=== PATIENT | female | born 1945 | race Caucasian/White ===

== ENCOUNTER 2020-04-09 18:14 | Inpatient (IN) ==
[2020-04-09 19:24] LABS: Basophils % 0.1 %; Eosinophils % 0.1 %; Hematocrit 28.3 % (35.3-44.9); Hemoglobin 9.5 g/dL (11.5-15.4); Immature Granulocytes % 0.4 % (0-4); Lymphocytes # 0.9 K/mcL (0.6-4.6); Lymphocytes % 6.7 %; Mean Corpuscular HGB Conc 33.6 g/dL (31.6-35.5); Mean Corpuscular Hemoglobin 32.2 pg (28.0-33.3); Mean Corpuscular Volume 95.9 fL (83.0-100.0); Mean Platelet Volume 11.3 fL (9.4-12.4); Monocytes # 1.4 K/mcL (0.0-1.3); Monocytes % 10.8 %; Neutrophils # 10.6 K/mcL (1.6-8.9); Platelet Count 116 K/mcL (140-400); Red Blood Count 2.95 M/mcL (3.82-4.97); Red Cell Distribution Width 14.7 % (11.5-14.5); Segmented Neutrophils % 81.9 %; White Blood Count 12.9 K/mcL (4.3-11.1)
[2020-04-09] MEDS: 0.9 % Sodium Chloride 1,000 ML IVC SCH (19:40)
[2020-04-09 19:51] LABS: Alanine Aminotransferase 17 Units/L (7-52); Albumin 3.3 g/dL (3.5-5.7); Albumin/Globulin Ratio 1.1 (1.1-2.2); Alkaline Phosphatase 61 Units/L (34-104); Aspartate Amino Transferase 52 Units/L (13-39); BUN/Creatinine Ratio 32 (6-26); Bilirubin,Direct 0.1 mg/dL (0.0-0.2); Bilirubin,Indirect 0.4 mg/dL (0.0-1.0); Bilirubin,Total 0.5 mg/dL (0.3-1.0); Blood Urea Nitrogen 30 mg/dL (8-23); Calcium 8.9 mg/dL (8.6-10.3); Carbon Dioxide 25 mEq/L (23-29); Chloride 107 mEq/L (98-107); Glucose 131 mg/dL (70-105); Osmolality,Calculated 300 (280-300); Sodium 141 mEq/L (136-145); Total Protein 6.3 g/dL (6.4-8.9); Troponin I 0.06 ng/mL (< 0.04); eGFR For African Americans > 60 (> 60); eGFR For Non-African Americans 58 (> 60)
[2020-04-09 19:57] LABS: Bilirubin,Urine Negative (Negative); Blood,Urine Negative (Negative); Clarity,Urine Cloudy (Clear); Color,Urine Yellow (Yellow); Glucose,Urine (UA) Normal (Normal); Ketones,Urine Negative (Negative); Leukocyte Esterase,Urine Negative (Negative); Nitrite,Urine Negative (Negative); PH,Urine 5.5 pH Units (5.0-8.0); Protein,Urine >=300 mg/dL (Neg-Trace); Urobilinogen,Urine Normal (Normal)
[2020-04-09 19:59] LABS: Activated Partial Thrombo Time 28.8 Seconds (26.0-36.0); INR 1.2; Prothrombin Time 13.1 Seconds (9.4-12.1)
[2020-04-09 20:04] LABS: Amphetamine Screen,Urine Negative ng/mL (Cutoff=1000); Barbiturate Screen,Urine Negative ng/mL (Cutoff=200); Benzodiazepines Screen,Urine Negative ng/mL (Cutoff=200); Cannabinoid Screen,Urine Negative ng/mL (Cutoff = 50); Cocaine Screen,Urine Negative ng/mL (Cutoff= 300); Opiate Screen,Urine Negative ng/mL (Cutoff=300); Phencyclidine Screen,Urine Negative ng/mL (Cutoff=25)
[2020-04-09 20:07] LABS: Amorphous Sediment,Urine Many per hpf (None-Few); Bacteria,Urine Few per hpf (None-Few); Squamous Epithelial Cell,Urine Few per hpf (None-Few); WBC,Urine 0-3 per hpf (0-3)
[2020-04-09 20:18] LABS: Platelet Clumps Few (Not Present); Platelet Estimate Decreased (Normal)
[2020-04-09] MEDS ORDERED: levoFLOXacin 750 MG/150 ML 750 MG/150 ML BAG IVPB SCH (21:00)
[2020-04-10 01:42] LABS: Adenovirus Not Detected (Not Detect); Bordetella Pertussis Not Detected (Not Detect); Chlamydophila pneumoniae Not Detected (Not Detect); Coronavirus 229E Not Detected (Not Detect); Coronavirus HKU1 Not Detected (Not Detect); Coronavirus NL63 Not Detected (Not Detect); Coronavirus OC43 Not Detected (Not Detect); Human Metapneumovirus Not Detected (Not Detect); Human Rhinovirus/Enterovirus Not Detected (Not Detect); Influenza A Subtype 2009 H1 Not Detected (Not Detect); Influenza B Not Detected (Not Detect); Mycoplasma pneumoniae Not Detected (Not Detect); Parainfluenza Virus 1 Not Detected (Not Detect); Parainfluenza Virus 2 Not Detected (Not Detect); Parainfluenza Virus 3 Not Detected (Not Detect); Parainfluenza Virus 4 Not Detected (Not Detect); Respiratory Syncytial Virus Not Detected (Not Detect); SARS-CoV-2 Not Detected (Not Detect)
[2020-04-10] MEDS ORDERED: Ondansetron 4 MG/2 ML VIAL IVP PRN (02:15)
[2020-04-10] MEDS ORDERED: 0.9 % Sodium Chloride 1,000 ML IVC SCH (02:15)
[2020-04-10] MEDS ORDERED: Naloxone 0.4 MG/ML INJ IVP PRN (02:15)
[2020-04-10] MEDS: NIFEdipine XL (24 HR) 30 MG TAB.ER.24 PO SCH (09:16)
[2020-04-10] MEDS: Furosemide 20 MG TABLET PO SCH (09:16)
[2020-04-10] MEDS: rOPINIRole 1 MG TABLET PO SCH (09:17)
[2020-04-10] MEDS: risperiDONE 0.25 MG TABLET PO SCH (09:17)
[2020-04-10] MEDS: allopurinoL 100 MG TABLET PO SCH ×2 (09:18→20:45)
[2020-04-10] MEDS: Magnesium Oxide 400 MG TABLET PO SCH (09:18)
[2020-04-10] MEDS: TRADJENTA 5MG PO SCH (09:18)
[2020-04-10] MEDS: Famotidine 20 MG TABLET PO SCH ×2 (09:18→20:45)
[2020-04-10] MEDS: Aspirin Enteric Coated 81 MG Tablet PO SCH (09:18)
[2020-04-10] MEDS ORDERED: Ipratropium/Albuterol Neb 3 ML IH PRN (11:04)
[2020-04-10] MEDS ORDERED: Dextrose Gel 15 GM/37.5 ML TUBE PO PRN ×2 (11:11)
[2020-04-10] MEDS ORDERED: *HR* Dextrose 50 % in Water (Vial) 50 ML VIAL IVP PRN (11:11)
[2020-04-10] MEDS ORDERED: D5% in Water 1,000 ML IVC PRN (11:11)
[2020-04-10] MEDS: Insulin LISPRO 300 UNITS/3 ML VIAL SQ SCH ×2 (12:40→17:02)
[2020-04-10] MEDS: Budesonide/Formoterol 160/4.5 1 PUFF INH IH SCH ×2 (13:23→21:02)
[2020-04-10 19:40] LABS: Acinetobacter baumannii by PCR Not Detected (Not Detect); Candida albicans by PCR Not Detected (Not Detect); Candida glabrata by PCR Not Detected (Not Detect); Enterobacter cloacae Cmplx PCR Not Detected (Not Detect); Enterococcus by PCR Not Detected (Not Detect); Escherichia coli by PCR DETECTED (Not Detect); Klebsiella oxytoca by PCR Not Detected (Not Detect); Klebsiella pneumoniae by PCR Not Detected (Not Detect); Proteus by PCR Not Detected (Not Detect); Pseudomonas aeruginosa by PCR Not Detected (Not Detect); Serratia marcescens by PCR Not Detected (Not Detect); Staphylococcus aureus by PCR Not Detected (Not Detect); Staphylococcus by PCR Not Detected (Not Detect); Streptococcus agalactiae(B)PCR Not Detected (Not Detect); Streptococcus by PCR Not Detected (Not Detect); Streptococcus pneumoniae PCR Not Detected (Not Detect); Streptococcus pyogenes (A) PCR Not Detected (Not Detect); blaKPC Carbapenem-Resist Gene Not Detected (Not Detect)
[2020-04-10 19:41] LABS: Candida krusei by PCR Not Detected (Not Detect); Candida parapsilosis by PCR Not Detected (Not Detect); Candida tropicalis by PCR Not Detected (Not Detect)
[2020-04-10] MEDS: risperiDONE 1 MG TABLET PO SCH (20:45)
[2020-04-10 21:28] LABS: Estimated Average Glucose 111 mg/dl
[2020-04-11] MEDS: Levothyroxine 25 MCG TABLET PO SCH (04:31)
[2020-04-11 07:30] LABS: Hemoglobin 8.9 g/dL (11.5-15.4); Mean Corpuscular Hemoglobin 31.9 pg (28.0-33.3); Mean Corpuscular Volume 96.8 fL (83.0-100.0); Mean Platelet Volume 11.3 fL (9.4-12.4); Platelet Count 116 K/mcL (140-400); Red Blood Count 2.79 M/mcL (3.82-4.97); Red Cell Distribution Width 14.6 % (11.5-14.5); White Blood Count 9.4 K/mcL (4.3-11.1)
[2020-04-11 07:50] LABS: Calcium 9.3 mg/dL (8.6-10.3); Potassium 4.4 mEq/L (3.5-5.1)
[2020-04-11] MEDS: NIFEdipine XL (24 HR) 30 MG TAB.ER.24 PO SCH (08:13)
[2020-04-11] MEDS: risperiDONE 0.25 MG TABLET PO SCH (08:13)
[2020-04-11] MEDS: rOPINIRole 1 MG TABLET PO SCH (08:13)
[2020-04-11] MEDS: Aspirin Enteric Coated 81 MG Tablet PO SCH (08:13)
[2020-04-11] MEDS: Famotidine 20 MG TABLET PO SCH ×2 (08:13→21:00)
[2020-04-11] MEDS: allopurinoL 100 MG TABLET PO SCH ×2 (08:13→21:00)
[2020-04-11] MEDS: TRADJENTA 5MG PO SCH (08:14)
[2020-04-11] MEDS: Magnesium Oxide 400 MG TABLET PO SCH (08:14)
[2020-04-11] MEDS: Insulin LISPRO 300 UNITS/3 ML VIAL SQ SCH ×3 (08:14→17:31)
[2020-04-11] MEDS: Budesonide/Formoterol 160/4.5 1 PUFF INH IH SCH ×2 (10:26→22:25)
[2020-04-11] MEDS: Furosemide 20 MG TABLET PO SCH ×2 (13:18→13:19)
[2020-04-11] MEDS: Furosemide 20 MG/2 ML VIAL IVP SCH (13:19)
[2020-04-11] MEDS: risperiDONE 1 MG TABLET PO SCH (21:00)
[2020-04-11] MEDS ORDERED: levoFLOXacin 750 MG/150 ML 750 MG/150 ML BAG IVPB SCH (21:00)
[2020-04-12] MEDS: Levothyroxine 25 MCG TABLET PO SCH (06:04)
[2020-04-12] MEDS: 0.9 % Sodium Chloride 1,000 ML IVC SCH (07:58)
[2020-04-12] MEDS: Furosemide 20 MG TABLET PO SCH ×2 (07:59→09:54)
[2020-04-12 08:47] LABS: Hematocrit 27.3 % (35.3-44.9); Hemoglobin 9.1 g/dL (11.5-15.4); Mean Corpuscular HGB Conc 33.3 g/dL (31.6-35.5); Mean Corpuscular Volume 96.1 fL (83.0-100.0); Mean Platelet Volume 10.7 fL (9.4-12.4); Platelet Count 135 K/mcL (140-400); Red Blood Count 2.84 M/mcL (3.82-4.97); Red Cell Distribution Width 14.6 % (11.5-14.5); White Blood Count 8.2 K/mcL (4.3-11.1)
[2020-04-12 09:17] LABS: Potassium 4.4 mEq/L (3.5-5.1); Troponin I 0.09 ng/mL (< 0.04)
[2020-04-12] MEDS: Famotidine 20 MG TABLET PO SCH ×2 (09:53→20:16)
[2020-04-12] MEDS: Magnesium Oxide 400 MG TABLET PO SCH (09:53)
[2020-04-12] MEDS: Sulfamethoxazole/Trimeth DS 1 EACH TABLET PO SCH ×2 (09:54→20:16)
[2020-04-12] MEDS: Aspirin Enteric Coated 81 MG Tablet PO SCH (09:54)
[2020-04-12] MEDS: allopurinoL 100 MG TABLET PO SCH ×2 (09:54→20:16)
[2020-04-12] MEDS: risperiDONE 0.25 MG TABLET PO SCH (09:54)
[2020-04-12] MEDS: Furosemide 20 MG/2 ML VIAL IVP SCH (09:54)
[2020-04-12] MEDS: rOPINIRole 1 MG TABLET PO SCH (09:55)
[2020-04-12] MEDS: TRADJENTA 5MG PO SCH (09:55)
[2020-04-12] MEDS: NIFEdipine XL (24 HR) 30 MG TAB.ER.24 PO SCH (09:55)
[2020-04-12] MEDS: Insulin LISPRO 300 UNITS/3 ML VIAL SQ SCH ×3 (09:55→17:36)
[2020-04-12] MEDS: Budesonide/Formoterol 160/4.5 1 PUFF INH IH SCH ×2 (11:00→23:26)
[2020-04-12] MEDS: risperiDONE 1 MG TABLET PO SCH (20:16)
[2020-04-13] MEDS: Levothyroxine 25 MCG TABLET PO SCH (05:45)
[2020-04-13] MEDS: Insulin LISPRO 300 UNITS/3 ML VIAL SQ SCH ×3 (08:06→16:36)
[2020-04-13] MEDS: Budesonide/Formoterol 160/4.5 1 PUFF INH IH SCH (09:28)
[2020-04-13] MEDS: rOPINIRole 1 MG TABLET PO SCH (10:02)
[2020-04-13] MEDS: NIFEdipine XL (24 HR) 30 MG TAB.ER.24 PO SCH (10:02)
[2020-04-13] MEDS: risperiDONE 0.25 MG TABLET PO SCH (10:02)
[2020-04-13] MEDS: Aspirin Enteric Coated 81 MG Tablet PO SCH (10:02)
[2020-04-13] MEDS: Famotidine 20 MG TABLET PO SCH (10:03)
[2020-04-13] MEDS: Furosemide 20 MG/2 ML VIAL IVP SCH (10:03)
[2020-04-13] MEDS: Sulfamethoxazole/Trimeth DS 1 EACH TABLET PO SCH (10:03)
[2020-04-13] MEDS: Magnesium Oxide 400 MG TABLET PO SCH (10:03)
[2020-04-13] MEDS: allopurinoL 100 MG TABLET PO SCH (10:03)
[2020-04-13] MEDS: TRADJENTA 5MG PO SCH (10:03)
[2020-04-13 14:41] VITALS: BP 137/65
[2020-04-13] MEDS ORDERED: Famotidine 20 MG TABLET PO SCH (21:00)
== END 2020-04-13 18:21 | disposition hospice, home (50) | DRG 193 ==
LOC: INPPIK 18:14 → EMEROOPIK 18:14 → INPPIK 04-10 01:50
PROVIDERS: ADMIT Family Medicine; ATTEND Family Medicine

== ENCOUNTER 2020-04-13 10:46 | Inpatient (IN) ==
[2020-04-13] MEDS ORDERED: Albuterol 2.5 MG/3 ML NEBULIZER IH PRN (16:19)
[2020-04-13] MEDS: Sulfamethoxazole/Trimeth DS 1 EACH TABLET PO SCH (21:47)
[2020-04-13] MEDS: risperiDONE 1 MG TABLET PO SCH (21:47)
[2020-04-13] MEDS: Famotidine 20 MG TABLET PO SCH (21:47)
[2020-04-13] MEDS: allopurinoL 100 MG TABLET PO SCH (21:48)
[2020-04-14] MEDS: Levothyroxine 25 MCG TABLET PO SCH (05:28)
[2020-04-14 08:06] LABS: Basophils % 0.2 %; Eosinophils # 0.2 K/mcL (0.0-0.6); Eosinophils % 2.7 %; Hematocrit 25.5 % (35.3-44.9); Hemoglobin 8.6 g/dL (11.5-15.4); Immature Granulocytes % 0.3 % (0-4); Lymphocytes # 1.7 K/mcL (0.6-4.6); Lymphocytes % 28.8 %; Mean Corpuscular HGB Conc 33.7 g/dL (31.6-35.5); Mean Corpuscular Hemoglobin 32.3 pg (28.0-33.3); Mean Corpuscular Volume 95.9 fL (83.0-100.0); Mean Platelet Volume 10.8 fL (9.4-12.4); Monocytes # 0.6 K/mcL (0.0-1.3); Monocytes % 10.4 %; Neutrophils # 3.4 K/mcL (1.6-8.9); Platelet Count 142 K/mcL (140-400); Red Blood Count 2.66 M/mcL (3.82-4.97); Red Cell Distribution Width 14.6 % (11.5-14.5); Segmented Neutrophils % 57.6 %; White Blood Count 5.9 K/mcL (4.3-11.1)
[2020-04-14] MEDS: Aspirin Enteric Coated 81 MG Tablet PO SCH (08:10)
[2020-04-14] MEDS: NIFEdipine XL (24 HR) 30 MG TAB.ER.24 PO SCH (08:10)
[2020-04-14] MEDS: allopurinoL 100 MG TABLET PO SCH ×2 (08:10→19:49)
[2020-04-14] MEDS: risperiDONE 0.25 MG TABLET PO SCH (08:10)
[2020-04-14] MEDS: rOPINIRole 1 MG TABLET PO SCH (08:10)
[2020-04-14] MEDS: Sulfamethoxazole/Trimeth DS 1 EACH TABLET PO SCH ×2 (08:10→19:49)
[2020-04-14] MEDS: calcium polycarbophiL 625 MG TABLET PO SCH (08:11)
[2020-04-14] MEDS: Famotidine 20 MG TABLET PO SCH ×2 (08:11→16:43)
[2020-04-14] MEDS: Furosemide 20 MG TABLET PO SCH (08:11)
[2020-04-14] MEDS: Cholecalciferol (D-3) 1,000 UNIT (25MCG) TABLET PO SCH (08:11)
[2020-04-14] MEDS: Magnesium L-Lactate [Mag-Tab Sr] 84 MG PO SCH (08:12)
[2020-04-14 08:20] LABS: Calcium 9.4 mg/dL (8.6-10.3); Potassium 4.1 mEq/L (3.5-5.1)
[2020-04-14] MEDS ORDERED: INULIN PO SCH (09:00)
[2020-04-14] MEDS ORDERED: [UNRECOGNIZED DRUG - OTHER] PO SCH (09:00)
[2020-04-14] MEDS ORDERED: CHOLECALCIFEROL PO SCH (09:00)
[2020-04-14] MEDS: Budesonide/Formoterol 160/4.5 1 PUFF INH IH SCH ×2 (09:02→22:34)
[2020-04-14] MEDS: risperiDONE 1 MG TABLET PO SCH (19:49)
[2020-04-15] MEDS: Famotidine 20 MG TABLET PO SCH ×2 (06:46→16:32)
[2020-04-15] MEDS: Levothyroxine 25 MCG TABLET PO SCH (06:46)
[2020-04-15] MEDS: Sulfamethoxazole/Trimeth DS 1 EACH TABLET PO SCH ×2 (08:02→19:35)
[2020-04-15] MEDS: allopurinoL 100 MG TABLET PO SCH ×2 (08:02→19:34)
[2020-04-15] MEDS: rOPINIRole 1 MG TABLET PO SCH (08:02)
[2020-04-15] MEDS: risperiDONE 0.25 MG TABLET PO SCH (08:02)
[2020-04-15] MEDS: NIFEdipine XL (24 HR) 30 MG TAB.ER.24 PO SCH (08:02)
[2020-04-15] MEDS: Cholecalciferol (D-3) 1,000 UNIT (25MCG) TABLET PO SCH (08:02)
[2020-04-15] MEDS: calcium polycarbophiL 625 MG TABLET PO SCH (08:02)
[2020-04-15] MEDS: Aspirin Enteric Coated 81 MG Tablet PO SCH (08:02)
[2020-04-15] MEDS: Furosemide 20 MG TABLET PO SCH (08:03)
[2020-04-15] MEDS: Magnesium L-Lactate [Mag-Tab Sr] 84 MG PO SCH (08:03)
[2020-04-15] MEDS: Budesonide/Formoterol 160/4.5 1 PUFF INH IH SCH ×2 (10:27→23:03)
[2020-04-15] MEDS: Magnesium Oxide 400 MG TABLET PO SCH (11:18)
[2020-04-15] MEDS: risperiDONE 1 MG TABLET PO SCH (19:34)
[2020-04-16] MEDS: Famotidine 20 MG TABLET PO SCH ×2 (06:18→17:42)
[2020-04-16] MEDS: Levothyroxine 25 MCG TABLET PO SCH (06:18)
[2020-04-16] MEDS: risperiDONE 0.25 MG TABLET PO SCH (08:04)
[2020-04-16] MEDS: Aspirin Enteric Coated 81 MG Tablet PO SCH (08:04)
[2020-04-16] MEDS: Furosemide 20 MG TABLET PO SCH (08:04)
[2020-04-16] MEDS: NIFEdipine XL (24 HR) 30 MG TAB.ER.24 PO SCH (08:04)
[2020-04-16] MEDS: Cholecalciferol (D-3) 1,000 UNIT (25MCG) TABLET PO SCH (08:04)
[2020-04-16] MEDS: allopurinoL 100 MG TABLET PO SCH ×2 (08:04→20:23)
[2020-04-16] MEDS: Sulfamethoxazole/Trimeth DS 1 EACH TABLET PO SCH ×2 (08:04→20:23)
[2020-04-16] MEDS: calcium polycarbophiL 625 MG TABLET PO SCH (08:05)
[2020-04-16] MEDS: rOPINIRole 1 MG TABLET PO SCH (08:05)
[2020-04-16] MEDS: Magnesium Oxide 400 MG TABLET PO SCH (08:05)
[2020-04-16] MEDS: Budesonide/Formoterol 160/4.5 1 PUFF INH IH SCH ×2 (10:34→21:38)
[2020-04-16] MEDS: risperiDONE 1 MG TABLET PO SCH (20:40)
[2020-04-17] MEDS: Levothyroxine 25 MCG TABLET PO SCH (05:56)
[2020-04-17] MEDS: Sulfamethoxazole/Trimeth DS 1 EACH TABLET PO SCH ×2 (07:50→20:20)
[2020-04-17] MEDS: risperiDONE 0.25 MG TABLET PO SCH (07:50)
[2020-04-17] MEDS: Cholecalciferol (D-3) 1,000 UNIT (25MCG) TABLET PO SCH (07:50)
[2020-04-17] MEDS: Aspirin Enteric Coated 81 MG Tablet PO SCH (07:51)
[2020-04-17] MEDS: NIFEdipine XL (24 HR) 30 MG TAB.ER.24 PO SCH (07:51)
[2020-04-17] MEDS: rOPINIRole 1 MG TABLET PO SCH (07:51)
[2020-04-17] MEDS: Famotidine 20 MG TABLET PO SCH ×2 (07:51→16:22)
[2020-04-17] MEDS: calcium polycarbophiL 625 MG TABLET PO SCH (07:51)
[2020-04-17] MEDS: Magnesium Oxide 400 MG TABLET PO SCH (07:51)
[2020-04-17] MEDS: Furosemide 20 MG TABLET PO SCH (07:51)
[2020-04-17] MEDS: allopurinoL 100 MG TABLET PO SCH ×2 (07:52→20:20)
[2020-04-17] MEDS: Budesonide/Formoterol 160/4.5 1 PUFF INH IH SCH ×2 (08:26→21:37)
[2020-04-17] MEDS: lisinopriL 20 MG TABLET PO SCH (10:24)
[2020-04-17] MEDS: risperiDONE 1 MG TABLET PO SCH (20:20)
[2020-04-18] MEDS: Famotidine 20 MG TABLET PO SCH ×2 (05:41→16:24)
[2020-04-18] MEDS: Levothyroxine 25 MCG TABLET PO SCH (05:42)
[2020-04-18] MEDS: NIFEdipine XL (24 HR) 30 MG TAB.ER.24 PO SCH (08:11)
[2020-04-18] MEDS: Aspirin Enteric Coated 81 MG Tablet PO SCH (08:11)
[2020-04-18] MEDS: Cholecalciferol (D-3) 1,000 UNIT (25MCG) TABLET PO SCH (08:11)
[2020-04-18] MEDS: Sulfamethoxazole/Trimeth DS 1 EACH TABLET PO SCH ×2 (08:11→20:26)
[2020-04-18] MEDS: allopurinoL 100 MG TABLET PO SCH ×2 (08:11→20:26)
[2020-04-18] MEDS: Magnesium Oxide 400 MG TABLET PO SCH (08:11)
[2020-04-18] MEDS: Furosemide 20 MG TABLET PO SCH (08:11)
[2020-04-18] MEDS: rOPINIRole 1 MG TABLET PO SCH (08:12)
[2020-04-18] MEDS: calcium polycarbophiL 625 MG TABLET PO SCH (08:12)
[2020-04-18] MEDS: lisinopriL 20 MG TABLET PO SCH (08:12)
[2020-04-18] MEDS: risperiDONE 0.25 MG TABLET PO SCH (08:12)
[2020-04-18] MEDS: Budesonide/Formoterol 160/4.5 1 PUFF INH IH SCH ×2 (09:19→22:36)
[2020-04-18] MEDS: risperiDONE 1 MG TABLET PO SCH (20:26)
[2020-04-19] MEDS: Levothyroxine 25 MCG TABLET PO SCH (06:16)
[2020-04-19 07:21] LABS: Basophils % 0.3 %; Eosinophils # 0.2 K/mcL (0.0-0.6); Eosinophils % 3.4 %; Hematocrit 26.3 % (35.3-44.9); Hemoglobin 8.9 g/dL (11.5-15.4); Immature Granulocytes % 0.5 % (0-4); Lymphocytes # 2.7 K/mcL (0.6-4.6); Mean Corpuscular HGB Conc 33.8 g/dL (31.6-35.5); Mean Corpuscular Volume 94.6 fL (83.0-100.0); Mean Platelet Volume 10.4 fL (9.4-12.4); Monocytes # 0.5 K/mcL (0.0-1.3); Monocytes % 8.6 %; Neutrophils # 2.5 K/mcL (1.6-8.9); Platelet Count 202 K/mcL (140-400); Red Blood Count 2.78 M/mcL (3.82-4.97); Red Cell Distribution Width 14.2 % (11.5-14.5); Segmented Neutrophils % 42.2 %
[2020-04-19 07:50] LABS: BUN/Creatinine Ratio 20 (6-26); Blood Urea Nitrogen 19 mg/dL (8-23); Calcium 9.2 mg/dL (8.6-10.3); Carbon Dioxide 27 mEq/L (23-29); Chloride 105 mEq/L (98-107); Glucose 98 mg/dL (70-105); Osmolality,Calculated 286 (280-300); Potassium 4.4 mEq/L (3.5-5.1); Sodium 137 mEq/L (136-145); eGFR For African Americans > 60 (> 60); eGFR For Non-African Americans 59 (> 60)
[2020-04-19] MEDS: NIFEdipine XL (24 HR) 30 MG TAB.ER.24 PO SCH (10:03)
[2020-04-19] MEDS: rOPINIRole 1 MG TABLET PO SCH (10:03)
[2020-04-19] MEDS: Magnesium Oxide 400 MG TABLET PO SCH (10:03)
[2020-04-19] MEDS: Furosemide 20 MG TABLET PO SCH (10:03)
[2020-04-19] MEDS: risperiDONE 0.25 MG TABLET PO SCH (10:03)
[2020-04-19] MEDS: Sulfamethoxazole/Trimeth DS 1 EACH TABLET PO SCH ×2 (10:03→20:31)
[2020-04-19] MEDS: Famotidine 20 MG TABLET PO SCH ×2 (10:03→16:29)
[2020-04-19] MEDS: lisinopriL 20 MG TABLET PO SCH (10:04)
[2020-04-19] MEDS: Cholecalciferol (D-3) 1,000 UNIT (25MCG) TABLET PO SCH (10:04)
[2020-04-19] MEDS: allopurinoL 100 MG TABLET PO SCH ×2 (10:04→20:31)
[2020-04-19] MEDS: Aspirin Enteric Coated 81 MG Tablet PO SCH (10:04)
[2020-04-19] MEDS: calcium polycarbophiL 625 MG TABLET PO SCH (10:04)
[2020-04-19] MEDS: Budesonide/Formoterol 160/4.5 1 PUFF INH IH SCH ×2 (10:17→21:42)
[2020-04-19] MEDS: risperiDONE 1 MG TABLET PO SCH (20:31)
[2020-04-20] MEDS: Levothyroxine 25 MCG TABLET PO SCH (05:56)
[2020-04-20] MEDS: NIFEdipine XL (24 HR) 30 MG TAB.ER.24 PO SCH (08:25)
[2020-04-20] MEDS: Aspirin Enteric Coated 81 MG Tablet PO SCH (08:25)
[2020-04-20] MEDS: Cholecalciferol (D-3) 1,000 UNIT (25MCG) TABLET PO SCH (08:25)
[2020-04-20] MEDS: rOPINIRole 1 MG TABLET PO SCH (08:26)
[2020-04-20] MEDS: calcium polycarbophiL 625 MG TABLET PO SCH (08:26)
[2020-04-20] MEDS: lisinopriL 20 MG TABLET PO SCH (08:26)
[2020-04-20] MEDS: risperiDONE 0.25 MG TABLET PO SCH (08:26)
[2020-04-20] MEDS: allopurinoL 100 MG TABLET PO SCH ×2 (08:26→19:35)
[2020-04-20] MEDS: Furosemide 20 MG TABLET PO SCH (08:26)
[2020-04-20] MEDS: Famotidine 20 MG TABLET PO SCH ×2 (08:26→17:04)
[2020-04-20] MEDS: Magnesium Oxide 400 MG TABLET PO SCH (08:26)
[2020-04-20] MEDS: Sulfamethoxazole/Trimeth DS 1 EACH TABLET PO SCH ×2 (08:28→19:35)
[2020-04-20] MEDS: Budesonide/Formoterol 160/4.5 1 PUFF INH IH SCH ×2 (10:04→22:35)
[2020-04-20] MEDS: risperiDONE 1 MG TABLET PO SCH (19:35)
[2020-04-21] MEDS: Levothyroxine 25 MCG TABLET PO SCH (05:33)
[2020-04-21] MEDS: rOPINIRole 1 MG TABLET PO SCH (08:44)
[2020-04-21] MEDS: NIFEdipine XL (24 HR) 30 MG TAB.ER.24 PO SCH (08:44)
[2020-04-21] MEDS: Famotidine 20 MG TABLET PO SCH ×2 (08:45→16:47)
[2020-04-21] MEDS: lisinopriL 20 MG TABLET PO SCH (08:45)
[2020-04-21] MEDS: Furosemide 20 MG TABLET PO SCH (08:45)
[2020-04-21] MEDS: Aspirin Enteric Coated 81 MG Tablet PO SCH (08:45)
[2020-04-21] MEDS: risperiDONE 0.25 MG TABLET PO SCH (08:45)
[2020-04-21] MEDS: Magnesium Oxide 400 MG TABLET PO SCH (08:45)
[2020-04-21] MEDS: Cholecalciferol (D-3) 1,000 UNIT (25MCG) TABLET PO SCH (08:45)
[2020-04-21] MEDS: calcium polycarbophiL 625 MG TABLET PO SCH (08:45)
[2020-04-21] MEDS: allopurinoL 100 MG TABLET PO SCH ×2 (08:46→21:02)
[2020-04-21] MEDS: Budesonide/Formoterol 160/4.5 1 PUFF INH IH SCH ×2 (10:32→22:31)
[2020-04-21] MEDS: risperiDONE 1 MG TABLET PO SCH (21:02)
[2020-04-22] MEDS: Levothyroxine 25 MCG TABLET PO SCH (05:43)
[2020-04-22] MEDS: Famotidine 20 MG TABLET PO SCH ×2 (05:43→17:03)
[2020-04-22] MEDS: calcium polycarbophiL 625 MG TABLET PO SCH (08:33)
[2020-04-22] MEDS: Aspirin Enteric Coated 81 MG Tablet PO SCH (08:33)
[2020-04-22] MEDS: risperiDONE 0.25 MG TABLET PO SCH (08:33)
[2020-04-22] MEDS: rOPINIRole 1 MG TABLET PO SCH (08:33)
[2020-04-22] MEDS: NIFEdipine XL (24 HR) 30 MG TAB.ER.24 PO SCH (08:34)
[2020-04-22] MEDS: allopurinoL 100 MG TABLET PO SCH ×2 (08:34→20:32)
[2020-04-22] MEDS: lisinopriL 20 MG TABLET PO SCH (08:34)
[2020-04-22] MEDS: Cholecalciferol (D-3) 1,000 UNIT (25MCG) TABLET PO SCH (08:34)
[2020-04-22] MEDS: Magnesium Oxide 400 MG TABLET PO SCH (08:34)
[2020-04-22] MEDS: Furosemide 20 MG TABLET PO SCH (08:34)
[2020-04-22] MEDS: Budesonide/Formoterol 160/4.5 1 PUFF INH IH SCH ×2 (09:20→21:14)
[2020-04-22] MEDS: risperiDONE 1 MG TABLET PO SCH (20:33)
[2020-04-23] MEDS: Levothyroxine 25 MCG TABLET PO SCH (05:48)
[2020-04-23] MEDS: Famotidine 20 MG TABLET PO SCH (05:48)
[2020-04-23 07:32] VITALS: BP 181/75
[2020-04-23] MEDS: Budesonide/Formoterol 160/4.5 1 PUFF INH IH SCH (09:06)
[2020-04-23] MEDS: risperiDONE 0.25 MG TABLET PO SCH (09:31)
[2020-04-23] MEDS: Aspirin Enteric Coated 81 MG Tablet PO SCH (09:32)
[2020-04-23] MEDS: Cholecalciferol (D-3) 1,000 UNIT (25MCG) TABLET PO SCH (09:32)
[2020-04-23] MEDS: rOPINIRole 1 MG TABLET PO SCH (09:33)
[2020-04-23] MEDS: NIFEdipine XL (24 HR) 30 MG TAB.ER.24 PO SCH (09:33)
[2020-04-23] MEDS: Magnesium Oxide 400 MG TABLET PO SCH (09:33)
[2020-04-23] MEDS: lisinopriL 20 MG TABLET PO SCH (09:33)
[2020-04-23] MEDS: Furosemide 20 MG TABLET PO SCH (09:33)
[2020-04-23] MEDS: calcium polycarbophiL 625 MG TABLET PO SCH (09:33)
[2020-04-23] MEDS: allopurinoL 100 MG TABLET PO SCH (09:33)
== END 2020-04-23 10:55 | disposition home health service (06) | DRG 689 ==
LOC: INPPIK 18:46
PROVIDERS: ADMIT Family Medicine; ATTEND Family Medicine